=== PATIENT | female | born 1980 | race Caucasian/White ===

== ENCOUNTER 2022-04-09 17:10 | Inpatient (IN) | payer OTHER, SELFPAY ==
[2022-04-09 17:13] VITALS: BP 149/105; PULSE 118; RESP 22; TEMP 36.7; O2SAT 97; BMI 50.1
--- NOTE | 2022-04-09 17:20 | ED.PSYCH ---
HPI - Psych General Chief Complaint: Psychiatric Symptoms Stated Complaint: Wrist lac Time Seen by Provider: 04/09/22 17:18 Source: patient Mode of arrival: ambulatory Limitations: no limitations History of Present Illness HPI Narrative: 41-year-old female history of bipolar disorder presents to the emergency department with suicidal ideation with plan and depression. Patient tells me that she is suicidal with plan to cut her wrist in bleed. Today she presented with self-inflicted lacerations to bilateral wrists/forearms. She tells me that she has been feeling depressed lately over the past week or so, worsening she tells me she is under lot of stress, she tells me COVID, her child, increased how stressors, she tells me she has seen a lot of family members and she has been very stressed. She denies homicidal ideation. She tells me last night she is having visual and auditory hallucinations, she tells me she was seen hearing goes to. She tells me this is the 1st time this has ever happened to her. MD complaint: suicidal ideation and feels depressed Onset (ago): week(s) (1) Duration: constant History of same: No Relieving factors: none Exacerbating factors: none Associated psychiatric symptoms: none Associated symptoms: denies other symptoms Treatments prior to arrival: none If self harm: admits thoughts of self harm and has plan Related Data Home Medications Medication Instructions Recorded Confirmed No Known Home Meds 04/09/22 04/09/22 Allergies Allergy/AdvReac Type Severity Reaction Status Date / Time No Known Allergies Allergy Verified 04/09/22 17:14 Review of Systems Review of Systems: Constitutional : No Weight loss, No Fever, No Chills, No Fatigue, No Malaise ENT/Mouth : No sore throat, No Rhinorrhea Eyes: No Eye Pain, No Swelling, No Redness Cardiovascular : No Chest Pain, No SOB, No Dyspnea on Exertion, No Orthopnea, No Edema, No Palpitations Respiratory : No Cough, No Sputum, No Wheezing Gastrointestinal : No Nausea, No Vomiting, No Diarrhea, No Constipation, No abdominal Pain, No Hematochezia, No Melena Genitourinary : No Dysuria, No Urinary Frequency, No Hematuria, Musculoskeletal : No joint pain, No Myalgias, No Joint Swelling Skin : No Skin Lesions, No rash Neuro : No Weakness, No Numbness, No Dizziness, No Headache Psych : No Anxiety/Panic, No Depression All other systems reviewed and are negative Yes all other systems are reviewed and are negative [facility] Past Medical History Attestation statement: The following information was validated with the patient. Source: old records reviewed and nursing notes reviewed Social History Social History Advance Directives: No Advance Directives Information Provided: No Physical Exam Vital Signs: Vital Signs: Last Vital Signs Temp 97.7 F 04/09/22 19:54 Pulse 87 04/09/22 19:54 Resp 16 04/09/22 19:54 BP 126/62 04/09/22 19:54 Pulse Ox 95 04/09/22 19:54 BMI result Body Mass Index 50.1 Patient is noted to be slightly hypertensive, tachycardic likely secondary to anxiety. Appearance: Alert.? Oriented X3.? No acute distress.? Head: Normocephalic, atraumatic, no step-offs or deformities Eyes: Pupils equal, round and reactive to light.? ENT: Pharynx normal.? Neck: Normal inspection.? Neck supple.? CVS: Normal heart rate and rhythm.? Pulses normal.? Respiratory: No respiratory distress.? Breath sounds normal.? Abdomen: Soft and nontender.? Skin: Skin warm and dry.? Normal skin color.? Normal skin turgor.? + self-inflicted wounds to bilateral forearm/wrist worse on the left Extremities: No lower extremity edema.? No calf ttp. 5/5 strength to bilateral upper and lower extremities Neuro: Oriented X 3.? No motor deficit.? No sensory deficit. CN 2-12 intact Course Reevaluation(s) Reevaluation #1: CBC appears to be within normal limits. Chemistry with no acute electrolyte abnormalities requiring intervention. Urine clean. Toxicology negative. Ethanol 226. COVID negative. Patient's laceration was successfully sutured using 3, 5-0 sutures to the left forearm. Steri-Strips were also used. Patient tolerated procedure well no complications. At this time patient will be placed in physician observation to allow more time to be evaluated by the behavioral health team. At time observation was started patient common cooperative no acute distress. Time: 19:49 MDM - Psych MDM Narrative Medical decision making narrative: [id number] 41-year-old female presents with bilateral self-inflicted wounds to her wrists, suicidal ideation and depression worsening over the past few days. Physical examination significant for self-inflicted wounds bilaterally, the left wrist will require sutures for repair. Regular rate and rhythm. Lungs clear. Abdomen soft nontender nondistended. Neuro nonfocal. Plan at this time medical clearance. Medical Records Attestation: I reviewed the patient's medical records. Lab Data Attestation: I reviewed the patient's lab results. Result diagrams: 04/09/22 18:05 04/09/22 18:05 Labs: Lab Results 04/09/22 04/09/22 04/09/22 Range/Units 17:32 17:56 17:56 WBC (4.8-10.8) X10*3/uL RBC (4.20-5.50) X10*6/uL Hgb (12.0-16.0) g/dl Hct (37.0-47.0) % MCV (80.0-98.0) fL MCH (27.0-33.0) pg MCHC (31.0-35.0) g/dl RDW (11.0-16.0) % Plt Count (160-400) X10*3/uL MPV (9.4-12.3) fL Immature Gran % (Auto) (0.0-0.4) % Neut % (Auto) (45-73) % Lymph % (Auto) (20-40) % [place] % (Auto) (2-11) % Eos % (Auto) (0-4) % Baso % (Auto) (0-2) % Lymph # (Auto) (1.2-4.9) X10*3/uL [place] # (Auto) (0.1-1.2) X10*3/uL Eos # (Auto) (0.0-0.4) X10*3/uL Baso # (Auto) (0.0-0.2) X10*3/uL Abs Immat Gran (auto) (0.00-0.03) X10*3/uL Absolute Neuts (auto) (2.0-8.3) x10*3/uL Absolute Nucleated RBC (0.0-0.012) X10*3/uL Nucleated RBC % (auto) (0.0-0.2) /100WBC Sodium (135-145) mmol/L Potassium (3.3-5.1) mmol/L Chloride (96-108) mmol/L Carbon Dioxide (22-29) mmol/L Anion Gap (12-20) BUN (9-16) mg/dL Creatinine (0.5-1.4) mg/dL Estim Creat Clear Calc Estimated GFR Random Glucose (60-115) mg/dL Calcium (8.4-10.2) mg/dL Magnesium (1.6-2.6) mg/dL Total Bilirubin (0.0-1.0) mg/dL AST (5-31) U/L ALT (0-31) U/L Alkaline Phosphatase (39-117) U/L Total Protein (6.5-8.0) g/dL Albumin (3.5-5.0) g/dL Urine Color STRAW Urine Appearance CLEAR Urine pH 6.0 (5.0-8.0) Ur Specific [place] <= 1.005 (1.005-1.025) Urine Protein NEG (NEG-TRACE) MG/DL Urine Glucose (UA) NEG (NEG) MG/DL Urine Ketones NEG (NEG) MG/DL Urine Blood TRACE (NEG) Urine Nitrite NEG (NEG) Ur Leukocyte Esterase NEG (NEG) Urine RBC 0 (0) /HPF Urine WBC 0 (0-4) /HPF Ur Squamous Epith Cells TRACE /LPF Urine Bacteria NONE /LPF Urine Opiates Screen Not Detected (Not Detect) Urine Fentanyl Screen Not Detected (Not Detect) Ur Barbiturates Screen Not Detected (Not Detect) Ur Phencyclidine Scrn Not Detected (Not Detect) Ur Amphetamines Screen Not Detected (Not Detect) U Benzodiazepines Scrn Not Detected (Not Detect) Urine Cocaine Screen Not Detected (Not Detect) U Marijuana (THC) Screen Not Detected (Not Detect) Ethyl Alcohol mg/dL COVID-19 (DORIE) Negative (Negative) COVID-19 Clin Com See Note 04/09/22 04/09/22 04/09/22 Range/Units 18:05 18:05 18:05 WBC 8.3 (4.8-10.8) X10*3/uL RBC 4.59 (4.20-5.50) X10*6/uL Hgb 14.6 (12.0-16.0) g/dl Hct 43.8 (37.0-47.0) % MCV 95.4 (80.0-98.0) fL MCH 31.8 (27.0-33.0) pg MCHC 33.3 (31.0-35.0) g/dl RDW 13.1 (11.0-16.0) % Plt Count 394 (160-400) X10*3/uL MPV 9.1 L (9.4-12.3) fL Immature Gran % (Auto) 0.2 (0.0-0.4) % Neut % (Auto) 66.4 (45-73) % Lymph % (Auto) 25.9 (20-40) % [place] % (Auto) 4.8 (2-11) % Eos % (Auto) 2.2 (0-4) % Baso % (Auto) 0.5 (0-2) % Lymph # (Auto) 2.2 (1.2-4.9) X10*3/uL [place] # (Auto) 0.4 (0.1-1.2) X10*3/uL Eos # (Auto) 0.2 (0.0-0.4) X10*3/uL Baso # (Auto) 0.0 (0.0-0.2) X10*3/uL Abs Immat Gran (auto) 0.02 (0.00-0.03) X10*3/uL Absolute Neuts (auto) 5.5 (2.0-8.3) x10*3/uL Absolute Nucleated RBC 0.000 (0.0-0.012) X10*3/uL Nucleated RBC % (auto) 0.0 (0.0-0.2) /100WBC Sodium 139 (135-145) mmol/L Potassium 4.4 (3.3-5.1) mmol/L Chloride 109 H (96-108) mmol/L Carbon Dioxide 19 L (22-29) mmol/L Anion Gap 15 (12-20) BUN 8 L (9-16) mg/dL Creatinine 0.83 (0.5-1.4) mg/dL Estim Creat Clear Calc 132.4 Estimated GFR > 60 Random Glucose 98 (60-115) mg/dL Calcium 9.4 (8.4-10.2) mg/dL Magnesium 2.1 (1.6-2.6) mg/dL Total Bilirubin 0.4 (0.0-1.0) mg/dL AST 34 H (5-31) U/L ALT 25 (0-31) U/L Alkaline Phosphatase 69 (39-117) U/L Total Protein 7.9 (6.5-8.0) g/dL Albumin 4.3 (3.5-5.0) g/dL Urine Color Urine Appearance Urine pH (5.0-8.0) Ur Specific [place] (1.005-1.025) Urine Protein (NEG-TRACE) MG/DL Urine Glucose (UA) (NEG) MG/DL Urine Ketones (NEG) MG/DL Urine Blood (NEG) Urine Nitrite (NEG) Ur Leukocyte Esterase (NEG) Urine RBC (0) /HPF Urine WBC (0-4) /HPF Ur Squamous Epith Cells /LPF Urine Bacteria /LPF Urine Opiates Screen (Not Detect) Urine Fentanyl Screen (Not Detect) Ur Barbiturates Screen (Not Detect) Ur Phencyclidine Scrn (Not Detect) Ur Amphetamines Screen (Not Detect) U Benzodiazepines Scrn (Not Detect) Urine Cocaine Screen (Not Detect) U Marijuana (THC) Screen (Not Detect) Ethyl Alcohol 226 mg/dL COVID-19 (DOREI) (Negative) COVID-19 Clin Com Procedures Laceration Laceration 1: Site: other (wrist ) Side (If applicable): left Size (cm): 4 Description: linear Depth: simple, single layer Local Anesthetic: lidocaine 1% Amount of anesthesia used (mL): 5 Pre-repair: wound explored, irrigated extensively and deep structures intact Skin layer closed with: vicryl Size (cm): 5-0 Number of sutures: 3 Critical Care Time Critical Care Time Critical Care Time: No Discharge Plan Discharge Clinical Impression: Depression, Suicidal ideation, Laceration of wrist Patient Disposition: Still a Patient Instructions: Depression (ED), Laceration (ED), Help Prevent Suicide (ED) Additional Instructions: Take your medications as prescribed. If you were prescribed antibiotics today, it is important that you take your medication to their entirety, do not skip any doses, do not finish them early. Follow-up with your primary care provider this week. Return to the emergency department with new or worsening symptoms. Such as fevers, chills, chest pain, shortness of breath, nausea, vomiting, dizziness, headache, vision changes, lethargy In case of emergency call 911 Return in 7-10 days for suture removal. Prescriptions: No Action No Known Home Meds 0RF
[2022-04-09] MEDS: Lidocaine HCl 2 % MPF 5 ML VIAL SUBCUT (17:29)
[2022-04-09] MEDS: Diphth,Pertus(ACell),Tet Adult 0.5 ML SYRINGE IM (17:33)
--- NOTE | 2022-04-09 17:35 | PC.NURSE ---
PROVIDER AT BEDSIDE TENDING TO LAC ON LEFT WRIST.
[2022-04-09 17:53] LABS: COVID-19 Test Negative (Negative); IDNOW Serial# 16C4AD1C
[2022-04-09 18:06] LABS: Appearance Urine CLEAR; Color Urine STRAW; Glucose Urine UA NEG (NEG); Leukocyte Esterase Urine NEG (NEG); Nitrite Urine NEG (NEG); Specific Gravity - Urine <= 1.005 (1.005-1.025); UACC Culture Trigger NO; Urine Blood TRACE (NEG); Urine Ketones NEG (NEG); Urine Protein NEG (NEG-TRACE)
[2022-04-09 18:10] LABS: MANUAL DIFF FLAG NO
[2022-04-09 18:15] LABS: RBC Urine 0 /HPF (0); Squamous Epithelial Cell Urine TRACE /LPF; WBC Urine 0 /HPF (0-4)
[2022-04-09 18:21] LABS: Amphetamine Screen Urine Not Detected (Not Detect); Barbiturates, Urine Not Detected (Not Detect); Benzodiazepines Screen Urine Not Detected (Not Detect); Cannabinoid Screen Urine Not Detected (Not Detect); Cocaine Screen Urine Not Detected (Not Detect); Fentanyl, urine Not Detected (Not Detect); Opiate Screen Urine Not Detected (Not Detect); Phencyclidine Screen Urine Not Detected (Not Detect)
[2022-04-09 18:23] LABS: Ethanol 226 mg/dL
[2022-04-09 18:24] LABS: Basophils Percent Auto 0.5 % (0-2); Eosinophils Absolute Auto 0.2 X10*3/uL (0.0-0.4); Eosinophils Percent Auto 2.2 % (0-4); Hematocrit 43.8 % (37.0-47.0); Hemoglobin 14.6 g/dl (12.0-16.0); Imm Gran Abs Auto 0.02 X10*3/uL (0.00-0.03); Imm Gran Pct Auto 0.2 % (0.0-0.4); Lymphocytes Absolute Auto 2.2 X10*3/uL (1.2-4.9); Lymphocytes Percent Auto 25.9 % (20-40); Mean Corpuscular HGB Conc 33.3 g/dl (31.0-35.0); Mean Corpuscular Hemoglobin 31.8 pg (27.0-33.0); Mean Corpuscular Volume 95.4 fL (80.0-98.0); Mean Platelet Volume 9.1 fL (9.4-12.3); Monocytes Absolute Auto 0.4 X10*3/uL (0.1-1.2); Monocytes Percent Auto 4.8 % (2-11); Neutrophils Absolute Auto 5.5 x10*3/uL (2.0-8.3); Neutrophils Percent Auto 66.4 % (45-73); Platelet Count 394 X10*3/uL (160-400); Red Blood Count 4.59 X10*6/uL (4.20-5.50); Red Cell Distribution Width 13.1 % (11.0-16.0); White Blood Count 8.3 X10*3/uL (4.8-10.8)
[2022-04-09 18:26] LABS: Alanine Aminotransferase 25 U/L (0-31); Albumin Level 4.3 g/dL (3.5-5.0); Alkaline Phosphatase 69 U/L (39-117); Anion Gap 15 (12-20); Aspartate Amino Transferase 34 U/L (5-31); Bilirubin Total 0.4 mg/dL (0.0-1.0); Blood Urea Nitrogen 8 mg/dL (9-16); Calcium 9.4 mg/dL (8.4-10.2); Carbon Dioxide 19 mmol/L (22-29); Chloride 109 mmol/L (96-108); Creatinine Clr Calc Pharmacy 132.4; Estimated Glomerular Filt Rate > 60; Glucose Random 98 mg/dL (60-115); Magnesium 2.1 mg/dL (1.6-2.6); Potassium 4.4 mmol/L (3.3-5.1); Sodium 139 mmol/L (135-145); Total Protein 7.9 g/dL (6.5-8.0)
[2022-04-09 19:54] VITALS: BP 126/62; PULSE 87; RESP 16; TEMP 36.5; O2SAT 95
[2022-04-09] MEDS: LORazepam 1 MG TABLET 2 MG PO (23:31)
[2022-04-09] MEDS: Ondansetron ODT 4 MG TAB.RAPDIS TRANSLINGU (23:46)
[2022-04-10 00:14] VITALS: BP 143/86; PULSE 100; RESP 16; TEMP 36.4; O2SAT 94
--- NOTE | 2022-04-10 01:28 | PC.NURSE ---
@2327 CIWA score was 10, administered Ativan 2 mg po, patient reported + effect, currently in bed resting, awaiting BHN assessment, will continue monitor
[2022-04-10] MEDS: LORazepam 1 MG TABLET 2 MG PO ×3 (04:49→21:15)
--- NOTE | 2022-04-10 06:54 | PC.NURSE ---
Ativan 2 mg PO administered at 0449, currently resting, no distress reported, VSS, will continue to monitor
--- NOTE | 2022-04-10 07:22 | PC.NURSE ---
patient appears to remain asleep[ at present respirations are even and unlabored patient appears in no distress
[2022-04-10 09:12] LABS: UPreg QC Valid YES; Urine Pregnancy NEGATIVE (NEGATIVE)
[2022-04-10 20:54] VITALS: RESP 20
[2022-04-10 21:22] VITALS: BP 127/86; PULSE 90; RESP 20; TEMP 36.1; O2SAT 95
[2022-04-11 02:42] VITALS: BP 102/58; PULSE 68; RESP 17; TEMP 36.8; O2SAT 98
[2022-04-11] MEDS: LORazepam 1 MG TABLET 2 MG PO ×3 (04:27→21:39)
[2022-04-11 04:29] VITALS: BP 110/72; PULSE 86; RESP 16; O2SAT 96
--- NOTE | 2022-04-11 06:37 | PC.NURSE ---
Patient overall slept well, no distress observed/reported, reported Headache at 0420, VSS, Ativan 2 mg PO administered anxiety, disposition per [facility] is section 12 inpatient bed search, behavior appropriate and non concerning, currently not on any scheduled meds, VSS, will continue to monitor.
--- NOTE | 2022-04-11 07:14 | PC.NURSE ---
patient appears to remain asleep at present respirations are even and unlabored patient appears in no distress
[2022-04-11 19:44] VITALS: BP 131/84; PULSE 94; RESP 20; TEMP 36.2; O2SAT 95
--- NOTE | 2022-04-12 06:22 | PC.NURSE ---
Patient slept through the night, no distress observed/reported, positive effect from Ativan 2 mg PO administered at 2139, asymptomatic of withdrawal at this time, showered, mood and behavior pleasant, disposition per [facility] is section 12 inpatient bed search, patient currently not on any scheduled medication, contracted for the safety, VSS, will continue to monitor
--- NOTE | 2022-04-12 07:50 | PC.NURSE ---
patient appears to remain at rest at present requested coloring pencils and pages respirations even and unlabored patient appears in no distress
[2022-04-12 10:12] VITALS: BP 156/78; PULSE 83; RESP 14; TEMP 36.3; O2SAT 95
[2022-04-12 14:36] LABS: COVID-19 Test Negative (Negative); IDNOW Serial# 55D5AD1C
[2022-04-12] MEDS: LORazepam 1 MG TABLET 2 MG PO (15:11)
[2022-04-12 19:45] VITALS: BP 137/92; PULSE 98; RESP 16; TEMP 36.3; O2SAT 95
[2022-04-12] MEDS: Famotidine 20 MG TABLET PO (22:06)
[2022-04-12] MEDS: hydrOXYzine HCL 25 MG TABLET PO (22:06)
[2022-04-12] MEDS: LORazepam 1 MG TABLET PO (22:06)
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
[2022-04-13 08:00] VITALS: BP 136/88; PULSE 84; RESP 18; TEMP 36.2; O2SAT 99
[2022-04-13] MEDS: Folic Acid 1 MG TABLET PO (08:59)
[2022-04-13] MEDS: Multivitamin TABLET 1 TAB PO (08:59)
[2022-04-13] MEDS: LORazepam 1 MG TABLET PO (08:59)
[2022-04-13] MEDS: Thiamine HCL 100 MG TABLET PO (08:59)
[2022-04-13] MEDS: Famotidine 20 MG TABLET PO ×2 (08:59→20:25)
[2022-04-13 12:30] VITALS: BP 128/88; PULSE 101; RESP 20; TEMP 36.7; O2SAT 98
[2022-04-13 14:40] VITALS: BP 139/85; PULSE 87; RESP 18; O2SAT 99
[2022-04-13] MEDS: buPROPion HCl XL 150 MG TAB.ER.24H PO (14:48)
[2022-04-13] MEDS: cloNIDine HCL 0.1 MG TABLET PO ×2 (14:48→20:25)
[2022-04-13] MEDS: LORazepam 0.5 MG TABLET PO ×2 (14:48→20:25)
[2022-04-13 20:10] VITALS: BP 127/74; PULSE 83; RESP 18; TEMP 36.4; O2SAT 96
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
--- NOTE | 2022-04-14 00:10 | PC.NURSE ---
Patient requested not to be awoken for CIWA assessment. Patient does not appear in distress. Breathing is free and easy. No signs of sweating.
--- NOTE | 2022-04-14 02:46 | PC.NURSE ---
Patient awake at 0220 stated that she was tossing and turning and requested the time, patient thought it was 0500. Offered prn medications but patient declined.
--- NOTE | 2022-04-14 03:53 | PC.NURSE ---
Patient resting at this time. No signs of distress noted. RR-16, Patient requested not to be awoken for CIWA assessment if she was sleeping. Nurse will continue to monitor.
[2022-04-14] MEDS: LORazepam 0.5 MG TABLET PO ×2 (08:14→21:13)
[2022-04-14] MEDS: Thiamine HCL 100 MG TABLET PO (08:14)
[2022-04-14] MEDS: cloNIDine HCL 0.1 MG TABLET PO ×2 (08:14→16:38)
[2022-04-14] MEDS: buPROPion HCl XL 150 MG TAB.ER.24H PO (08:14)
[2022-04-14] MEDS: Multivitamin TABLET 1 TAB PO (08:14)
[2022-04-14] MEDS: Famotidine 20 MG TABLET PO ×2 (08:14→21:13)
[2022-04-14] MEDS: Folic Acid 1 MG TABLET PO (08:15)
[2022-04-14 08:30] VITALS: BP 134/83; PULSE 67; RESP 16; TEMP 36.6; O2SAT 96
--- NOTE | 2022-04-14 15:15 | P.PNPSI_ITS ---
Subjective Subjective Date of Service: 04/14/22 Reason For Visit: depression/ SI Interim History: anxiety lower amplitude today, minimal SI. feeling better than yesterday and recent days in general. would like to keep daytime clonidine as it is and increase HS clonidine for sleep and nightmares. did not sleep very well last night. denies s/e from medications otherwise. planning to increase wellbutrin in 2 days. informed ativan taper will be continued. per staff, CIWAs 7, 4, 3, 1 yesterday. CIWA 0 this morning. disrupted sleep last night. sutures look CDI. visited yesterday. reported CAH to harm self to staff yesterday. Mental Status Exam Mental Status Exam Narrative: obese, adequately dressed and groomed, cooperative, no PMA/PMR. speech nml in rate, amount, loudness, tone, latency. thoughts linear and logical. affect full range, normo-intense, non-labile. mood improved. minimal SI, no HI/AVH expressed. Diagnostics Vital Signs (24Hr): Vital Signs - 24 hr 04/13/22 20:10 04/14/22 08:30 Temperature 97.6 F 97.8 F Pulse Rate 83 67 Respiratory Rate 18 16 Blood Pressure 127/74 134/83 Pulse Oximetry 96 96 Oxygen Delivery Method Room Air Room Air BMI result Body Mass Index 50.1 Labs Results: 04/09/22 18:05 04/09/22 18:05 Medications Medications Current Medications Acetaminophen (Acetaminophen 325 Mg Tablet) 650 mg PO Q6H PRN PRN Reason: Headache/Pain Mild Scale (1-3) Al Hydroxide/Mg Hydroxide (Magnesium Hydrox/Alum Hydrox 30 Ml Oral.Susp) 30 ml PO Q6H PRN PRN Reason: Heartburn/Nausea Bupropion HCl (Bupropion Hcl Xl 150 Mg Tab.Er.24h) 150 mg PO DAILY [facility] Last Admin: 04/14/22 08:14 Dose: 150 mg Clonidine HCl (Clonidine Hcl 0.1 Mg Tablet) 0.1 mg PO TID [facility]; Protocol Last Admin: 04/14/22 08:14 Dose: 0.1 mg Famotidine (Famotidine 20 Mg Tablet) 20 mg PO BID [facility] Last Admin: 04/14/22 08:14 Dose: 20 mg Folic Acid (Folic Acid 1 Mg Tablet) 1 mg PO DAILY [facility] Stop: 04/16/22 08:59 Last Admin: 04/14/22 08:15 Dose: 1 mg Hydroxyzine HCl (Hydroxyzine Hcl 25 Mg Tablet) 25 mg PO Q6H PRN PRN Reason: Anxiety Last Admin: 04/12/22 22:06 Dose: 25 mg Lorazepam (Lorazepam 1 Mg Tablet) 1 mg PO Q2H PRN PRN Reason: CIWA for 6-11 Lorazepam (Lorazepam 1 Mg Tablet) 2 mg PO Q2H PRN PRN Reason: CIWA 12 or greater Lorazepam (Lorazepam 0.5 Mg Tablet) 0.5 mg PO TID [facility] Last Admin: 04/14/22 08:14 Dose: 0.5 mg Magnesium Hydroxide (Milk Of Magnesia 30 Ml Oral.Susp) 30 ml PO DAILY PRN PRN Reason: Constipation Multivitamins/Vitamin C (Multivitamin Tablet) 1 tab PO DAILY [facility] Stop: 04/16/22 08:59 Last Admin: 04/14/22 08:14 Dose: 1 tab Nicotine Polacrilex (Nicotine Polacrilex 2 Mg Gum) 4 mg BUCCAL Q2H PRN PRN Reason: Nicotine Cravings Thiamine HCl (Thiamine Hcl 100 Mg Tablet) 100 mg PO DAILY [facility] Stop: 04/15/22 19:52 Last Admin: 04/14/22 08:14 Dose: 100 mg Trazodone HCl (Trazodone Hcl 50 Mg Tablet) 50 mg PO BEDTIME PRN PRN Reason: Insomnia Allergies Allergies Allergy/AdvReac Type Severity Reaction Status Date / Time No Known Allergies Allergy Verified 04/09/22 17:14 Assessment & Plan Assessment & Plan (1) Depression: Status: Acute Code(s): F32.A - Depression, unspecified (2) Suicidal ideation: Status: Acute Code(s): R45.851 - Suicidal ideations (3) Laceration of wrist: Status: Acute Code(s): S61.519A - Laceration without foreign body of unspecified wrist, initial encounter (4) Alcohol use disorder, moderate, dependence: Status: Acute Code(s): F10.20 - Alcohol dependence, uncomplicated Plan decreased scheduled ativan from 1 mg TID to 0.5 mg TID, as pt c/o sedation, on 04/14. ativan per [facility] protocol DCed 04/14, scheduled ativan decreased to 0.5 BID. started clonidine 0.1 TID for anxiety on 04/13. increased to 0.1/0.1/0.2 on 04/14. started wellbutrin XL 150 mg daily for depression on 04/13. incr to 300 mg daily on 04/16. T/C neuroleptic at low dose of AH persist. I spent __25____ minutes with the patient and/or on the patient floor today, greater than?50% of which was spent counseling/coordinating care. Reason for contiued inpatient stay Substantial Risk for: harm to self
[2022-04-14 21:10] VITALS: BP 115/68; PULSE 75; RESP 16; TEMP 36.6; O2SAT 97
[2022-04-14] MEDS: cloNIDine HCL 0.2 MG TABLET PO (21:13)
[2022-04-15 07:00] VITALS: BMI 50.1
[2022-04-15] MEDS: Thiamine HCL 100 MG TABLET PO (08:46)
[2022-04-15] MEDS: LORazepam 0.5 MG TABLET PO ×2 (08:46→20:11)
[2022-04-15] MEDS: Multivitamin TABLET 1 TAB PO (08:46)
[2022-04-15] MEDS: Famotidine 20 MG TABLET PO ×2 (08:46→20:11)
[2022-04-15] MEDS: buPROPion HCl XL 150 MG TAB.ER.24H PO (08:46)
[2022-04-15] MEDS: Folic Acid 1 MG TABLET PO (08:46)
[2022-04-15] MEDS: cloNIDine HCL 0.1 MG TABLET PO ×2 (08:46→15:42)
[2022-04-15 09:18] VITALS: BP 114/66; PULSE 72; RESP 18; TEMP 36.3; O2SAT 98
--- NOTE | 2022-04-15 14:40 | P.PNPSI_ITS ---
Subjective Subjective Date of Service: 04/15/22 Reason For Visit: depression/ SI Interim History: pt calm and cooeprative, bright and cheery. she states she is feeling better today, with a real smile, not a fake smile. she does c/o some sleep paralysis-like experience last night which scared her. MD encourages patient and normalizes experience. denies STAHL, sweats, tremors, n/v/d, panic/severe anxiety. denies SI/SIBI. feeling a lot of guilt and remorse, however. feeling the time here has been helpful thus far. agreeable to increase wellbutrin to 300 mg daily as of tomorrow morning. per staff, dep 7, anx 2-9. c/o AH. attending some groups. journaling. slept OK. anxious overnight. Mental Status Exam Mental Status Exam Narrative: obese, adequately dressed and groomed, cooperative, no PMA/PMR. speech nml in rate, amount, loudness, tone, latency. thoughts linear and logical. affect full range, normo-intense, non-labile. mood improved. denies SI/SIBI, no HI/AVH expressed. Diagnostics Vital Signs (24Hr): Vital Signs - 24 hr 04/14/22 21:10 04/15/22 09:18 Temperature 97.8 F 97.3 F Pulse Rate 75 72 Respiratory Rate 16 18 Blood Pressure 115/68 114/66 Pulse Oximetry 97 98 Oxygen Delivery Method Room Air Room Air BMI result Body Mass Index 50.1 Labs Results: 04/09/22 18:05 04/09/22 18:05 Medications Medications Current Medications Acetaminophen (Acetaminophen 325 Mg Tablet) 650 mg PO Q6H PRN PRN Reason: Headache/Pain Mild Scale (1-3) Al Hydroxide/Mg Hydroxide (Magnesium Hydrox/Alum Hydrox 30 Ml Oral.Susp) 30 ml PO Q6H PRN PRN Reason: Heartburn/Nausea Bupropion HCl (Bupropion Hcl Xl 300 Mg Tab.Er.24h) 300 mg PO DAILY [facility] Clonidine HCl (Clonidine Hcl 0.1 Mg Tablet) 0.1 mg PO BID@0900,1500 [facility]; Protocol Last Admin: 04/15/22 08:46 Dose: 0.1 mg Clonidine HCl (Clonidine Hcl 0.2 Mg Tablet) 0.2 mg PO BEDTIME [facility]; Protocol Last Admin: 04/14/22 21:13 Dose: 0.2 mg Famotidine (Famotidine 20 Mg Tablet) 20 mg PO BID [facility] Last Admin: 04/15/22 08:46 Dose: 20 mg Folic Acid (Folic Acid 1 Mg Tablet) 1 mg PO DAILY [facility] Stop: 04/16/22 08:59 Last Admin: 04/15/22 08:46 Dose: 1 mg Hydroxyzine HCl (Hydroxyzine Hcl 25 Mg Tablet) 25 mg PO Q6H PRN PRN Reason: Anxiety Last Admin: 04/12/22 22:06 Dose: 25 mg Lorazepam (Lorazepam 0.5 Mg Tablet) 0.5 mg PO BID [facility] Last Admin: 04/15/22 08:46 Dose: 0.5 mg Magnesium Hydroxide (Milk Of Magnesia 30 Ml Oral.Susp) 30 ml PO DAILY PRN PRN Reason: Constipation Multivitamins/Vitamin C (Multivitamin Tablet) 1 tab PO DAILY [facility] Stop: 04/16/22 08:59 Last Admin: 04/15/22 08:46 Dose: 1 tab Nicotine Polacrilex (Nicotine Polacrilex 2 Mg Gum) 4 mg BUCCAL Q2H PRN PRN Reason: Nicotine Cravings Thiamine HCl (Thiamine Hcl 100 Mg Tablet) 100 mg PO DAILY [facility] Stop: 04/15/22 19:52 Last Admin: 04/15/22 08:46 Dose: 100 mg Trazodone HCl (Trazodone Hcl 50 Mg Tablet) 50 mg PO BEDTIME PRN PRN Reason: Insomnia Allergies Allergies Allergy/AdvReac Type Severity Reaction Status Date / Time No Known Allergies Allergy Verified 04/09/22 17:14 Assessment & Plan Assessment & Plan (1) Depression: Status: Acute Code(s): F32.A - Depression, unspecified (2) Suicidal ideation: Status: Acute Code(s): R45.851 - Suicidal ideations (3) Laceration of wrist: Status: Acute Code(s): S61.519A - Laceration without foreign body of unspecified wrist, initial encounter (4) Alcohol use disorder, moderate, dependence: Status: Acute Code(s): F10.20 - Alcohol dependence, uncomplicated Plan decreased scheduled ativan from 1 mg TID to 0.5 mg TID, as pt c/o sedation, on 04/14. ativan per [facility] protocol DCed 04/14, scheduled ativan decreased to 0.5 BID. started clonidine 0.1 TID for anxiety on 04/13. increased to 0.1/0.1/0.2 on 04/14. started wellbutrin XL 150 mg daily for depression on 04/13. incr to 300 mg daily on 04/16. T/C neuroleptic at low dose of AH persist. I spent ___20___ minutes with the patient and/or on the patient floor today, greater than?50% of which was spent counseling/coordinating care. Reason for contiued inpatient stay Substantial Risk for: harm to self, inability to function and rapid decompensation
[2022-04-15 18:00] VITALS: BP 119/70; PULSE 85; RESP 14; TEMP 36.6; O2SAT 97
[2022-04-15] MEDS: cloNIDine HCL 0.2 MG TABLET PO (20:11)
[2022-04-15] MEDS: traZODone HCL 50 MG TABLET PO (20:59)
[2022-04-16] MEDS: Milk of Magnesia 30 ML ORAL.SUSP PO (03:42)
[2022-04-16 09:18] VITALS: BP 130/70; PULSE 72; RESP 18; TEMP 36.7; O2SAT 97
[2022-04-16] MEDS: buPROPion HCl XL 300 MG TAB.ER.24H PO (09:20)
[2022-04-16] MEDS: cloNIDine HCL 0.1 MG TABLET PO ×2 (09:20→14:48)
[2022-04-16] MEDS: Famotidine 20 MG TABLET PO ×2 (09:21→20:50)
[2022-04-16] MEDS: LORazepam 0.5 MG TABLET PO (09:21)
[2022-04-16 14:46] VITALS: BP 116/58; PULSE 73
--- NOTE | 2022-04-16 15:37 | P.PNPSI_ITS ---
Subjective Subjective Date of Service: 04/16/22 Reason For Visit: depression/ SI Interim History: calm, cooperative, bright. somewhat more labile today when discussing her convo with her yesterday and the topic, her children's upset about her behaviors. she was encouraged to explore with her what they have expressed concern over so she could prepare herself for the conversations with them prior to going home. informed pt ativan would be now DCed as part of taper. no complaints or requests from pt. amenable to F/U with substance abuse counselor after discharge. per staff, dep 4 anx 3. no SI/HI/AVH. brighter, + groups. good appetite, journaling. tearful at times yesterday after difficult visit with . Mental Status Exam Mental Status Exam Narrative: obese, adequately dressed and groomed, cooperative, no PMA/PMR. speech nml in rate, amount, loudness, tone, latency. thoughts linear and logical. affect full range, normo-intense, min-labile (some tearfulness over concern about how her kids see her now). feeling guilt and shame today. no SI/SIBI/HI/AVH expressed. Diagnostics Vital Signs (24Hr): Vital Signs - 24 hr 04/15/22 18:00 04/16/22 09:18 04/16/22 14:46 Temperature 97.9 F 98.0 F Pulse Rate 85 72 73 Respiratory Rate 14 18 Blood Pressure 119/70 130/70 116/58 L Pulse Oximetry 97 97 Oxygen Delivery Method Room Air Room Air BMI result Body Mass Index 50.1 Labs Results: 04/09/22 18:05 04/09/22 18:05 Medications Medications Current Medications Acetaminophen (Acetaminophen 325 Mg Tablet) 650 mg PO Q6H PRN PRN Reason: Headache/Pain Mild Scale (1-3) Al Hydroxide/Mg Hydroxide (Magnesium Hydrox/Alum Hydrox 30 Ml Oral.Susp) 30 ml PO Q6H PRN PRN Reason: Heartburn/Nausea Bupropion HCl (Bupropion Hcl Xl 300 Mg Tab.Er.24h) 300 mg PO DAILY [facility] Last Admin: 04/16/22 09:20 Dose: 300 mg Chlorpromazine HCl (Chlorpromazine Hcl 100 Mg Tablet) 100 mg PO BEDTIME PRN PRN Reason: agitation Clonidine HCl (Clonidine Hcl 0.1 Mg Tablet) 0.1 mg PO BID@0900,1500 [facility]; Protocol Last Admin: 04/16/22 14:48 Dose: 0.1 mg Clonidine HCl (Clonidine Hcl 0.2 Mg Tablet) 0.2 mg PO BEDTIME [facility]; Protocol Last Admin: 04/15/22 20:11 Dose: 0.2 mg Famotidine (Famotidine 20 Mg Tablet) 20 mg PO BID [facility] Last Admin: 04/16/22 09:21 Dose: 20 mg Hydroxyzine HCl (Hydroxyzine Hcl 25 Mg Tablet) 25 mg PO Q6H PRN PRN Reason: Anxiety Last Admin: 04/12/22 22:06 Dose: 25 mg Magnesium Hydroxide (Milk Of Magnesia 30 Ml Oral.Susp) 30 ml PO DAILY PRN PRN Reason: Constipation Last Admin: 04/16/22 03:42 Dose: 30 ml Nicotine Polacrilex (Nicotine Polacrilex 2 Mg Gum) 4 mg BUCCAL Q2H PRN PRN Reason: Nicotine Cravings Trazodone HCl (Trazodone Hcl 100 Mg Tablet) 100 mg PO BEDTIME PRN PRN Reason: Insomnia Allergies Allergies Allergy/AdvReac Type Severity Reaction Status Date / Time No Known Allergies Allergy Verified 04/09/22 17:14 Assessment & Plan Assessment & Plan (1) Depression: Status: Acute Code(s): F32.A - Depression, unspecified (2) Suicidal ideation: Status: Acute Code(s): R45.851 - Suicidal ideations (3) Laceration of wrist: Status: Acute Code(s): S61.519A - Laceration without foreign body of unspecified wrist, initial encounter (4) Alcohol use disorder, moderate, dependence: Status: Acute Code(s): F10.20 - Alcohol dependence, uncomplicated Plan decreased scheduled ativan from 1 mg TID to 0.5 mg TID, as pt c/o sedation, on 04/14. ativan per [facility] protocol DCed 04/14, scheduled ativan decreased to 0.5 BID. ativan DCed on 04/16. started clonidine 0.1 TID for anxiety on 04/13. increased to 0.1/0.1/0.2 on 04/14. started wellbutrin XL 150 mg daily for depression on 04/13. incr to 300 mg daily on 04/16. pt does not have AH, no neuroleptic needed. I spent ___25___ minutes with the patient and/or on the patient floor today, greater than?50% of which was spent counseling/coordinating care. Reason for contiued inpatient stay Substantial Risk for: harm to self, inability to function and rapid decompensation
--- NOTE | 2022-04-16 19:24 | MHC.RECOVSUP ---
Addendum entered by Salomón Rivera 04/20/22 11:12: Patient to start the [place] [facility] virtually upon discharge. Patient on naltrexone, referred patient to [employer]. Gave patient community resources, such as AAmtg's and counseling referrals. referred her to [facility] and the [facility]. Original Note: ? Reason for consult Recovery Support.. o Current location: [facility] [place][note 3] o Identified substance use concern: Alcohol - Support ? Intervention: o Community resources provided o Harm reduction discussion ? Plan: o Patient to follow up with [facility] after discharge ? Additional information: Met with Patient we talk harm reduction and recovery.. we talk about [facility] [place] & [employer].. Patient want to try both..
[2022-04-16 20:30] VITALS: BP 114/61; PULSE 68; RESP 18; TEMP 36.4; O2SAT 99
[2022-04-16] MEDS: cloNIDine HCL 0.2 MG TABLET PO (20:49)
[2022-04-16] MEDS: traZODone HCL 100 MG TABLET PO (20:50)
[2022-04-16] MEDS: hydrOXYzine HCL 25 MG TABLET PO (20:50)
[2022-04-16] MEDS: chlorproMAZINE HCl 100 MG TABLET PO (20:50)
[2022-04-17 08:30] VITALS: BP 101/65; PULSE 82; RESP 16; TEMP 36.4; O2SAT 95
[2022-04-17] MEDS: Famotidine 20 MG TABLET PO ×2 (08:56→20:59)
[2022-04-17] MEDS: cloNIDine HCL 0.1 MG TABLET PO ×2 (08:56→15:48)
[2022-04-17] MEDS: buPROPion HCl XL 300 MG TAB.ER.24H PO (08:59)
[2022-04-17] MEDS: Omeprazole 20 MG CAPSULE.DR PO (10:30)
[2022-04-17] MEDS: Thiamine HCL 100 MG TABLET PO (10:30)
[2022-04-17] MEDS: Naltrexone HCl 50 MG TABLET PO (10:30)
[2022-04-17] MEDS: Folic Acid 1 MG TABLET PO (10:30)
--- NOTE | 2022-04-17 12:23 | P.PNPSI_ITS ---
Subjective Subjective Date of Service: 04/17/22 Reason For Visit: depression/ SI Subjective Notes: Conditional Voluntary Interim History: Pt reports feeling less depressed, more hopeful. She reports less anxious mood. Increase motivation to continue alcohol use disorder treatment. She denies SI/HI. She agrees to start naltrexon for alcohol cravings. No behavioral concerns. Stitches were removed by hospitalist. Medication Compliance: Yes Side effects from medications: No Review of Systems Review of Systems Constitutional : No Weight loss, No Fever, No Chills, No Fatigue, No Malaise ENT/Mouth : No sore throat, No Rhinorrhea Eyes: No Eye Pain, No Swelling, No Redness Cardiovascular : No Chest Pain, No SOB, No Dyspnea on Exertion, No Orthopnea, No Edema, No Palpitations Respiratory : No Cough, No Sputum, No Wheezing Gastrointestinal : No Nausea, No Vomiting, No Diarrhea, No Constipation, No abdominal Pain, No Hematochezia, No Melena Genitourinary : No Dysuria, No Urinary Frequency, No Hematuria, Musculoskeletal : No joint pain, No Myalgias, No Joint Swelling Skin : No Skin Lesions, No rash Neuro : No Weakness, No Numbness, No Dizziness, No Headache Psych : No Anxiety/Panic, No Depression All other systems reviewed and are negative Yes all other systems are reviewed and are negative Mental Status Exam Mental Status Exam Narrative: obese, adequately dressed and groomed, cooperative, no PMA/PMR. speech nml in rate, amount, loudness, tone, latency. thoughts linear and logical. affect full range, normo-intense, non labile. no SI/SIBI/HI/AVH expressed. Diagnostics Vital Signs (24Hr): Vital Signs - 24 hr 04/16/22 14:46 04/16/22 20:30 Temperature 97.5 F Pulse Rate 73 68 Respiratory Rate 18 Blood Pressure 116/58 L 114/61 Pulse Oximetry 99 Oxygen Delivery Method Room Air BMI result Body Mass Index 50.1 Labs Results: 04/09/22 18:05 04/09/22 18:05 Medications Medications Current Medications Acetaminophen (Acetaminophen 325 Mg Tablet) 650 mg PO Q6H PRN PRN Reason: Headache/Pain Mild Scale (1-3) Al Hydroxide/Mg Hydroxide (Magnesium Hydrox/Alum Hydrox 30 Ml Oral.Susp) 30 ml PO Q6H PRN PRN Reason: Heartburn/Nausea Bupropion HCl (Bupropion Hcl Xl 300 Mg Tab.Er.24h) 300 mg PO DAILY [facility] Last Admin: 04/17/22 08:59 Dose: 300 mg Chlorpromazine HCl (Chlorpromazine Hcl 100 Mg Tablet) 100 mg PO BEDTIME PRN PRN Reason: agitation Last Admin: 04/16/22 20:50 Dose: 100 mg Clonidine HCl (Clonidine Hcl 0.1 Mg Tablet) 0.1 mg PO BID@0900,1500 [facility]; Protocol Last Admin: 04/17/22 08:56 Dose: 0.1 mg Clonidine HCl (Clonidine Hcl 0.2 Mg Tablet) 0.2 mg PO BEDTIME [facility]; Protocol Last Admin: 04/16/22 20:49 Dose: 0.2 mg Famotidine (Famotidine 20 Mg Tablet) 20 mg PO BID [facility] Last Admin: 04/17/22 08:56 Dose: 20 mg Hydroxyzine HCl (Hydroxyzine Hcl 25 Mg Tablet) 25 mg PO Q6H PRN PRN Reason: Anxiety Last Admin: 04/16/22 20:50 Dose: 25 mg Magnesium Hydroxide (Milk Of Magnesia 30 Ml Oral.Susp) 30 ml PO DAILY PRN PRN Reason: Constipation Last Admin: 04/16/22 03:42 Dose: 30 ml Nicotine Polacrilex (Nicotine Polacrilex 2 Mg Gum) 4 mg BUCCAL Q2H PRN PRN Reason: Nicotine Cravings Omeprazole (Omeprazole 20 Mg Capsule.Dr) 20 mg PO DAILY@0630 [facility] Trazodone HCl (Trazodone Hcl 100 Mg Tablet) 100 mg PO BEDTIME PRN PRN Reason: Insomnia Last Admin: 04/16/22 20:50 Dose: 100 mg Allergies Allergies Allergy/AdvReac Type Severity Reaction Status Date / Time No Known Allergies Allergy Verified 04/09/22 17:14 Assessment & Plan Assessment & Plan (1) Depression: Status: Acute Code(s): F32.A - Depression, unspecified (2) Suicidal ideation: Status: Acute Code(s): R45.851 - Suicidal ideations (3) Laceration of wrist: Status: Acute Code(s): S61.519A - Laceration without foreign body of unspecified wrist, initial e ncounter (4) Alcohol use disorder, moderate, dependence: Status: Acute Code(s): F10.20 - Alcohol dependence, uncomplicated Plan decreased scheduled ativan from 1 mg TID to 0.5 mg TID, as pt c/o sedation, on 04/14. ativan per [facility] protocol DCed 04/14, scheduled ativan decreased to 0.5 BID. ativan DCed on 04/16. started clonidine 0.1 TID for anxiety on 04/13. increased to 0.1/0.1/0.2 on 04/14. started wellbutrin XL 150 mg daily for depression on 04/13. incr to 300 mg daily on 04/16. pt does not have AH, no neuroleptic needed. 04/17 continue current medications, naltrexon added 50mg po daily. stitches removed by hospitalist. I spent _25 minutes with the patient and/or on the patient floor today, greater than?50% of which was spent counseling/coordinating care. Reason for contiued inpatient stay Substantial Risk for: harm to self
[2022-04-17] MEDS: cloNIDine HCL 0.2 MG TABLET PO (20:02)
[2022-04-17 20:55] VITALS: BP 104/57; PULSE 94; RESP 18; TEMP 36.4; O2SAT 97
[2022-04-17] MEDS: traZODone HCL 100 MG TABLET PO (20:59)
[2022-04-17] MEDS: hydrOXYzine HCL 25 MG TABLET PO (20:59)
[2022-04-18 06:00] VITALS: BP 100/61; PULSE 91; RESP 16; TEMP 36.4; O2SAT 93
[2022-04-18] MEDS: Milk of Magnesia 30 ML ORAL.SUSP PO (06:15)
[2022-04-18] MEDS: Omeprazole 20 MG CAPSULE.DR PO (06:15)
[2022-04-18] MEDS: Magnesium Citrate 300 ML SOLUTION PO (06:41)
[2022-04-18] MEDS: buPROPion HCl XL 300 MG TAB.ER.24H PO (09:35)
[2022-04-18] MEDS: Naltrexone HCl 50 MG TABLET PO (09:35)
[2022-04-18] MEDS: Famotidine 20 MG TABLET PO ×2 (09:35→20:51)
[2022-04-18] MEDS: Folic Acid 1 MG TABLET PO (09:35)
[2022-04-18] MEDS: cloNIDine HCL 0.1 MG TABLET PO ×2 (09:35→14:37)
[2022-04-18] MEDS: Thiamine HCL 100 MG TABLET PO (09:39)
--- NOTE | 2022-04-18 10:16 | HO.PSYCHPN ---
Subjective Subjective Date of Service: 04/18/22 Reason For Visit: depression/ SI Subjective Notes: Conditional Voluntary Interim History: Pt continues to report feeling less depressed, more hopeful. She reports less anxious mood. Increase motivation to continue alcohol use disorder treatment. She denies SI/HI. No side effects with naltrexon for alcohol cravings. No behavioral concerns. Pt visible on the unit, social with peers, attending groups. Medication Compliance: Yes Review of Systems Review of Systems Constitutional : No Weight loss, No Fever, No Chills, No Fatigue, No Malaise ENT/Mouth : No sore throat, No Rhinorrhea Eyes: No Eye Pain, No Swelling, No Redness Cardiovascular : No Chest Pain, No SOB, No Dyspnea on Exertion, No Orthopnea, No Edema, No Palpitations Respiratory : No Cough, No Sputum, No Wheezing Gastrointestinal : No Nausea, No Vomiting, No Diarrhea, No Constipation, No abdominal Pain, No Hematochezia, No Melena Genitourinary : No Dysuria, No Urinary Frequency, No Hematuria, Musculoskeletal : No joint pain, No Myalgias, No Joint Swelling Skin : No Skin Lesions, No rash Neuro : No Weakness, No Numbness, No Dizziness, No Headache Psych : No Anxiety/Panic, No Depression All other systems reviewed and are negative Yes all other systems are reviewed and are negative Mental Status Exam Mental Status Exam Narrative: obese, adequately dressed and groomed, cooperative, no PMA/PMR. speech nml in rate, amount, loudness, tone, latency. thoughts linear and logical. affect full range, normo-intense, non labile. no SI/SIBI/HI/AVH expressed. Diagnostics Vital Signs (24Hr): Vital Signs - 24 hr 04/18/22 20:00 Temperature 97.8 F Pulse Rate 80 Respiratory Rate 18 Blood Pressure 104/66 Pulse Oximetry 97 Oxygen Delivery Method Room Air BMI result Body Mass Index 50.1 Labs Results: 04/09/22 18:05 04/09/22 18:05 Medications Medications Current Medications Acetaminophen (Acetaminophen 325 Mg Tablet) 650 mg PO Q6H PRN PRN Reason: Headache/Pain Mild Scale (1-3) Last Admin: 04/18/22 19:54 Dose: 650 mg Al Hydroxide/Mg Hydroxide (Magnesium Hydrox/Alum Hydrox 30 Ml Oral.Susp) 30 ml PO Q6H PRN PRN Reason: Heartburn/Nausea Bupropion HCl (Bupropion Hcl Xl 300 Mg Tab.Er.24h) 300 mg PO DAILY [facility] Last Admin: 04/18/22 09:35 Dose: 300 mg Chlorpromazine HCl (Chlorpromazine Hcl 100 Mg Tablet) 100 mg PO BEDTIME PRN PRN Reason: agitation Last Admin: 04/16/22 20:50 Dose: 100 mg Clonidine HCl (Clonidine Hcl 0.1 Mg Tablet) 0.1 mg PO BID@0900,1500 [facility]; Protocol Last Admin: 04/18/22 14:37 Dose: 0.1 mg Clonidine HCl (Clonidine Hcl 0.2 Mg Tablet) 0.2 mg PO BEDTIME [facility]; Protocol Last Admin: 04/18/22 20:51 Dose: 0.2 mg Famotidine (Famotidine 20 Mg Tablet) 20 mg PO BID [facility] Last Admin: 04/18/22 20:51 Dose: 20 mg Folic Acid (Folic Acid 1 Mg Tablet) 1 mg PO DAILY [facility] Last Admin: 04/18/22 09:35 Dose: 1 mg Hydroxyzine HCl (Hydroxyzine Hcl 25 Mg Tablet) 25 mg PO Q6H PRN PRN Reason: Anxiety Last Admin: 04/18/22 20:03 Dose: 25 mg Magnesium Hydroxide (Milk Of Magnesia 30 Ml Oral.Susp) 30 ml PO DAILY PRN PRN Reason: Constipation Last Admin: 04/18/22 06:15 Dose: 30 ml Naltrexone HCl (Naltrexone Hcl 50 Mg Tablet) 50 mg PO DAILY [facility] Last Admin: 04/18/22 09:35 Dose: 50 mg Nicotine Polacrilex (Nicotine Polacrilex 2 Mg Gum) 4 mg BUCCAL Q2H PRN PRN Reason: Nicotine Cravings Omeprazole (Omeprazole 20 Mg Capsule.Dr) 20 mg PO DAILY@0630 [facility] Last Admin: 04/19/22 06:37 Dose: 20 mg Thiamine HCl (Thiamine Hcl 100 Mg Tablet) 100 mg PO DAILY [facility] Last Admin: 04/18/22 09:39 Dose: 100 mg Trazodone HCl (Trazodone Hcl 100 Mg Tablet) 100 mg PO BEDTIME PRN PRN Reason: Insomnia Last Admin: 04/18/22 20:03 Dose: 100 mg Allergies Allergies Allergy/AdvReac Type Severity Reaction Status Date / Time No Known Allergies Allergy Verified 04/09/22 17:14 Assessment & Plan Assessment & Plan (1) Depression: Status: Acute Code(s): F32.A - Depression, unspecified (2) Suicidal ideation: Status: Acute Code(s): R45.851 - Suicidal ideations (3) Laceration of wrist: Status: Acute Code(s): S61.519A - Laceration without foreign body of unspecified wrist, initial encounter (4) Alcohol use disorder, moderate, dependence: Status: Acute Code(s): F10.20 - Alcohol dependence, uncomplicated Plan decreased scheduled ativan from 1 mg TID to 0.5 mg TID, as pt c/o sedation, on 04/14. ativan per [facility] protocol DCed 04/14, scheduled ativan decreased to 0.5 BID. ativan DCed on 04/16. started clonidine 0.1 TID for anxiety on 04/13. increased to 0.1/0.1/0.2 on 04/14. started wellbutrin XL 150 mg daily for depression on 04/13. incr to 300 mg daily on 04/16. pt does not have AH, no neuroleptic needed. 04/17 continue current medications, naltrexon added 50mg po daily. stitches removed by hospitalist. continue current tx plan. I spent ___25___ minutes with the patient and/or on the patient floor today, greater than?50% of which was spent counseling/coordinating care. Reason for contiued inpatient stay Substantial Risk for: stable for discharge
[2022-04-18] MEDS: Acetaminophen 325 MG TABLET 650 MG PO (19:54)
[2022-04-18 20:00] VITALS: BP 104/66; PULSE 80; RESP 18; TEMP 36.6; O2SAT 97
[2022-04-18] MEDS: hydrOXYzine HCL 25 MG TABLET PO (20:03)
[2022-04-18] MEDS: traZODone HCL 100 MG TABLET PO (20:03)
[2022-04-18] MEDS: cloNIDine HCL 0.2 MG TABLET PO (20:51)
[2022-04-19] MEDS: Omeprazole 20 MG CAPSULE.DR PO (06:37)
[2022-04-19 08:00] VITALS: BP 117/65; PULSE 60; RESP 16; TEMP 36.6; O2SAT 97
[2022-04-19] MEDS: Famotidine 20 MG TABLET PO ×2 (08:42→20:56)
[2022-04-19] MEDS: Naltrexone HCl 50 MG TABLET PO (08:43)
[2022-04-19] MEDS: cloNIDine HCL 0.1 MG TABLET PO (08:43)
[2022-04-19] MEDS: Thiamine HCL 100 MG TABLET PO (08:43)
[2022-04-19] MEDS: Folic Acid 1 MG TABLET PO (08:44)
[2022-04-19] MEDS: buPROPion HCl XL 300 MG TAB.ER.24H PO (08:44)
[2022-04-19] MEDS: Trolamine Salicylate 10 % Cream 85 GM TUBE 1 APPL TOPICAL ×2 (11:15→19:58)
[2022-04-19] MEDS: cloNIDine 0.1 MG PATCH.TDWK TRANSDERMA (13:59)
--- NOTE | 2022-04-19 14:23 | P.PNPSI_ITS ---
Subjective Subjective Date of Service: 04/19/22 Reason For Visit: depression/ SI Interim History: calm, cooperative, grateful. discusses her work in groups, practicing mindfulness, improved mood, thoughts around discharge. MD proposes Wed as discharge date, pt seems ambivalent, perhaps having wanted to stay longer. agreeable to [facility] referral. clonidine PO changed to patch today, aside from HS dosing. topical added for knee pain. otherwise no complaints or requests. per staff, sutures removed. brighter yesterday. attending groups. visible, less anxious. denies SI/HI/AVH. started on naltrexone over w/e. Mental Status Exam Mental Status Exam Narrative: obese, adequately dressed and groomed, cooperative, no PMA/PMR. speech nml in rate, amount, loudness, tone, latency. thoughts linear and logical. affect full range, normo-intense, non labile. mood mentally i feel good. not perfect, but getting better every day. no SI/SIBI/HI/AVH expressed. Diagnostics Vital Signs (24Hr): Vital Signs - 24 hr 04/18/22 20:00 04/19/22 08:00 Temperature 97.8 F 97.8 F Pulse Rate 80 60 Respiratory Rate 18 16 Blood Pressure 104/66 117/65 Pulse Oximetry 97 97 Oxygen Delivery Method Room Air Room Air BMI result Body Mass Index 50.1 Labs Results: 04/09/22 18:05 04/09/22 18:05 Medications Medications Current Medications Acetaminophen (Acetaminophen 325 Mg Tablet) 650 mg PO Q6H PRN PRN Reason: Headache/Pain Mild Scale (1-3) Last Admin: 04/18/22 19:54 Dose: 650 mg Al Hydroxide/Mg Hydroxide (Magnesium Hydrox/Alum Hydrox 30 Ml Oral.Susp) 30 ml PO Q6H PRN PRN Reason: Heartburn/Nausea Bupropion HCl (Bupropion Hcl Xl 300 Mg Tab.Er.24h) 300 mg PO DAILY NIKOS Last Admin: 04/19/22 08:44 Dose: 300 mg Chlorpromazine HCl (Chlorpromazine Hcl 100 Mg Tablet) 100 mg PO BEDTIME PRN PRN Reason: agitation Last Admin: 04/16/22 20:50 Dose: 100 mg Clonidine (Clonidine 0.1 Mg Patch.Tdwk) 0.1 mg TRANSDERMA Mo@1200 NIKOS; Protocol Last Admin: 04/19/22 13:59 Dose: 0.1 mg Clonidine HCl (Clonidine Hcl 0.2 Mg Tablet) 0.2 mg PO BEDTIME [facility]; Protocol Last Admin: 04/18/22 20:51 Dose: 0.2 mg Famotidine (Famotidine 20 Mg Tablet) 20 mg PO BID [facility] Last Admin: 04/19/22 08:42 Dose: 20 mg Folic Acid (Folic Acid 1 Mg Tablet) 1 mg PO DAILY [facility] Last Admin: 04/19/22 08:44 Dose: 1 mg Hydroxyzine HCl (Hydroxyzine Hcl 25 Mg Tablet) 25 mg PO Q6H PRN PRN Reason: Anxiety Last Admin: 04/18/22 20:03 Dose: 25 mg Lidocaine HCl (Lidocaine 4 % Cream Kit) 1 appl TOPICAL DAILY PRN; Protocol PRN Reason: knee pain Magnesium Hydroxide (Milk Of Magnesia 30 Ml Oral.Susp) 30 ml PO DAILY PRN PRN Reason: Constipation Last Admin: 04/18/22 06:15 Dose: 30 ml Naltrexone HCl (Naltrexone Hcl 50 Mg Tablet) 50 mg PO DAILY [facility] Last Admin: 04/19/22 08:43 Dose: 50 mg Nicotine Polacrilex (Nicotine Polacrilex 2 Mg Gum) 4 mg BUCCAL Q2H PRN PRN Reason: Nicotine Cravings Omeprazole (Omeprazole 20 Mg Capsule.Dr) 20 mg PO DAILY@0630 [facility] Last Admin: 04/19/22 06:37 Dose: 20 mg Thiamine HCl (Thiamine Hcl 100 Mg Tablet) 100 mg PO DAILY [facility] Last Admin: 04/19/22 08:43 Dose: 100 mg Trazodone HCl (Trazodone Hcl 100 Mg Tablet) 100 mg PO BEDTIME PRN PRN Reason: Insomnia Last Admin: 04/18/22 20:03 Dose: 100 mg Trolamine Salicylate (Trolamine Salicylate 10 % Cream 85 Gm Tube) 1 appl TOPICAL QID PRN; Protocol PRN Reason: knee pain Allergies Allergies Allergy/AdvReac Type Severity Reaction Status Date / Time No Known Allergies Allergy Verified 04/09/22 17:14 Assessment & Plan Assessment & Plan (1) Depression: Status: Acute Code(s): F32.A - Depression, unspecified (2) Suicidal ideation: Status: Acute Code(s): R45.851 - Suicidal ideations (3) Laceration of wrist: Status: Acute Code(s): S61.519A - Laceration without foreign body of unspecified wrist, initial encounter (4) Alcohol use disorder, moderate, dependence: Status: Acute Code(s): F10.20 - Alcohol dependence, uncomplicated Plan decreased scheduled ativan from 1 mg TID to 0.5 mg TID, as pt c/o sedation, on 04/14. ativan per [facility] protocol DCed 04/14, scheduled ativan decreased to 0.5 BID. ativan DCed on 04/16. started clonidine 0.1 TID for anxiety on 04/13. increased to 0.1/0.1/0.2 on 04/14. started wellbutrin XL 150 mg daily for depression on 04/13. incr to 300 mg daily on 04/16. pt does not have AH, no neuroleptic needed. 04/17 continue current medications, naltrexone added 50mg po daily. stitches removed by hospitalist. continue current tx plan. 04/19: PO clonidine during the day replaced by patch. topical added for knee pain. planning for weds DC. I spent ___25___ minutes with the patient and/or on the patient floor today, greater than?50% of which was spent counseling/coordinating care. Reason for contiued inpatient stay Substantial Risk for: harm to self and rapid decompensation
[2022-04-19] MEDS: Lidocaine 4 % Cream KIT 1 APPL TOPICAL (16:38)
[2022-04-19 20:50] VITALS: BP 125/61; PULSE 83; RESP 16; TEMP 36.4; O2SAT 95
[2022-04-19] MEDS: cloNIDine HCL 0.2 MG TABLET PO (20:56)
[2022-04-19] MEDS: Capsaicin 0.025% Cream 60 GM TUBE 1 APPL TOPICAL (22:06)
[2022-04-20] MEDS: Omeprazole 20 MG CAPSULE.DR PO (06:32)
[2022-04-20 08:28] VITALS: BP 132/85; PULSE 74; RESP 16; TEMP 36.4; O2SAT 99
[2022-04-20] MEDS: Folic Acid 1 MG TABLET PO (08:30)
[2022-04-20] MEDS: Naltrexone HCl 50 MG TABLET PO (08:30)
[2022-04-20] MEDS: Thiamine HCL 100 MG TABLET PO (08:30)
[2022-04-20] MEDS: buPROPion HCl XL 300 MG TAB.ER.24H PO (08:31)
[2022-04-20] MEDS: Famotidine 20 MG TABLET PO (08:31)
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
== END 2022-04-20 12:47 | disposition home or self-care (01) | DRG 754 ==
LOC: HO.ED 21:12 → HO.PADLT16 04-12 19:08
PROVIDERS: Physician Assistant; Physician Assistant Medical; Admitting Provider Psychiatry & Neurology Psychiatry; Emergency Provider Internal Medicine; Visit Provider Psychiatry & Neurology Psychiatry
DX: F32.A Depression, unspecified (principal); R45.851 Suicidal ideations; F10.20 Alcohol dependence, uncomplicated; S61.511A Laceration without foreign body of right wrist, initial encounter; Z20.822 Contact with and (suspected) exposure to COVID-19; Z79.899 Other long term (current) drug therapy; Z87.891 Personal history of nicotine dependence; S61.512A Laceration without foreign body of left wrist, initial encounter; W26.9XXA Contact with unspecified sharp object(s), initial encounter
CPT/HCPCS: 36415; 80053; 80307; 81001; 81025; 82077; 83735; 85025; 87635; 90715; 99285

== ENCOUNTER → 2022-04-21 11:03 | Outpatient (BNVA) | payer OTHER, SELFPAY | PROVIDERS: PCP Physician Assistant; Visit Provider Internal Medicine | DX: F10.20 Alcohol dependence, uncomplicated (principal); F32.A Depression, unspecified | CPT/HCPCS: 80305; 99202 ==

== ENCOUNTER 2022-04-21 17:27 | Outpatient (REF) | payer OTHER, SELFPAY ==
[2022-04-21 18:07] LABS: Opiate Screen Urine Not Detected (Not Detect)
== END 2022-04-21 17:28 | disposition home or self-care (01) ==
LOC: HO.LNP 17:27
PROVIDERS: Visit Provider Internal Medicine
DX: F10.20 Alcohol dependence, uncomplicated (principal); F32.A Depression, unspecified; Z79.899 Other long term (current) drug therapy
CPT/HCPCS: 80307

== ENCOUNTER → 2022-04-23 10:42 | Outpatient (BNVA) | payer OTHER, SELFPAY | PROVIDERS: Visit Provider Internal Medicine | DX: Z51.81 Encounter for therapeutic drug level monitoring (principal); F10.20 Alcohol dependence, uncomplicated | CPT/HCPCS: 80305 ==

== ENCOUNTER 2022-05-11 12:15 | Outpatient (RCR) | payer OTHER, SELFPAY ==
[2022-04-26 12:08] VITALS: BMI 50.1
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
--- NOTE | 2022-04-27 08:35 | PC.NURSE ---
case opened in treatment team
--- NOTE | 2022-05-05 13:52 | P.PNPSP_ITS ---
Subjective Subjective Date of Service: 05/05/22 Reason For Visit: depression,alcohol dependency Medical Problems Affecting Mental Status: No Interim History: Describes mood as ?good ?. States some continued fluctuation with mood lability, but manageable. Continues with some anxiety. States it is much improved over past several weeks. No SI/HI, no safety concerns at this time. Remains abstinent from alcohol, denies cravings. Actively participating in 12 step groups. Would like to switch morning clonidine dose back to oral and remove weekly transdermal patch. Medication Compliance: Yes Side effects from medications: No Attending Groups: Yes Review of Systems Acute medical concerns: No Medical Review of Systems: unchanged Review of Systems Review of Systems Yes all other systems are reviewed and are negative Constitutional: Reports no additional constitutional complaints Mental Status Exam Mental Status Exam Narrative: NAD. No SI/HI. Patient Appearance: Well Grooomed and Appropriate Patient Orientation: Person, Place, Time and Situation Level of Consciousness: Appropriate Patient Behavior: Appropriate and Good Eye Contact Mood Description: Appropriate and Anxious Affect Description: Appropriate, Depressed (Appears improving) and Anxious (Appears improving) Patient Cognition Impaired: No Ability to Follow Directions: Good Speech Pattern: Clear, Appropriate and Coherent Memory Description: Intact Hallucinations: None Delusions: Not Present Thought Process: Intact Thought Content: positive for Intact Depressive Symptoms: Increased Anxiety, Feelings of Guilt and Increased Fatigue Judgement: Fair Diagnostics Vital Signs (24Hr): BMI result Body Mass Index 50.1 Assessment & Plan Assessment & Plan (1) Bipolar 2 disorder, major depressive episode: Status: Acute Code(s): F31.81 - Bipolar II disorder Assessment and Plan: Describes mood as ?good ?. States some continued fluctuation with mood lability, but manageable. Continues with some anxiety. States it is much improved over past several weeks. No SI/HI, no safety concerns at this time. Would like to switch morning clonidine dose back to oral and remove weekly transdermal patch. She states that she finds taking it orally is more helpful in managing symptoms. She accidentally took bedtime does this morning, denies any type of dizziness, low blood pressure, feeling faint. Reports that actually she feels it is helping manage her anxiety. She plans to discuss this with her outpatient provider next time she sees her, as she may wish to switch a.m. and bedtime doses. Discussion ensued, patient is agreeable to stopping patch this afternoon, and starting p.o. clonidine 0.1 mg daily Tuesday morning. Patient will continue with 0.2 mg clonidine at bedtime as currently prescribed. (2) Post-traumatic stress disorder, chronic: Status: Acute Code(s): F43.12 - Post-traumatic stress disorder, chronic (3) Alcohol use disorder, moderate, dependence: Status: Acute Code(s): F10.20 - Alcohol dependence, uncomplicated Assessment and Plan: Remains abstinent from alcohol, denies cravings. Actively participating in 12 step groups. 25 days of sobriety today. Has begun to build network in sobriety. Taking naltrexone, denies any type of cravings at this time. Plan 1. Continue with current [facility] plan of care. 2. Discontinue clonidine patch, removed today. 3. Start clonidine 0.1 mg p.o. in a.m. on 05/07/2022. 4. Continue all other medications as currently prescribed by outpatient psychiatrist. 5. Follow-up as per protocol. Patient educated on: diagnosis, medication risk/benefits, substance abuse and therapeutic strategies Informed Consent: understands Reason for contiued partial hosp. stay Substantial Risk for: harm to self, inability to function, rapid decompensation and med/psych decompensation Certification I certify that partial hospital treatment is medically necessary due to the symptoms and problems resulting from the patient's mental illness and the failure to treat the patient at the partial hospital level of care would likely result in the patient requiring inpatient psychiatric care which could not be prevented at a less intensive level of care. I spent minutes with the patient and/or on the patient floor today, greater than?50% of which was spent counseling/coordinating care. Discharge Plan Discharge Attending provider: Jimmy Tamayo Medications: New clonidine HCl 0.1 mg tablet 0.1 mg PO DAILY 30 Days Qty: 30 0RF Rx Instructions: Take transdermal clonidine patch OFF today, 05/05/22. Take clonidine 0.1mg daily in morning, starting 05/07/22. Discontinued clonidine 0.1 mg/24 hr Patch Weekly 0.1 mg transdermal Mo@1200 28 Days Qty: 4 0RF Protocol: Hold for SBP< HOLD for SBP < : 90 No Action clonidine HCl 0.2 mg Tablet 0.2 mg PO BEDTIME 30 Days Qty: 30 0RF Protocol: Hold for SBP< HOLD for SBP < : 90 bupropion HCl 300 mg Tablet Extended Release 24 Hr 300 mg PO DAILY 30 Days Qty: 30 0RF famotidine 20 mg Tablet 20 mg PO BID 30 Days Qty: 60 0RF omeprazole 20 mg Capsule,Delayed Release(Dr/Ec) 20 mg PO DAILY@0630 30 Days Qty: 30 0RF capsaicin 0.025 % Cream 1 appl topical TID PRN (Reason: knee pain) 30 Days Qty: 120 0RF folic acid 1 mg Tablet 1 mg PO DAILY 30 Days Qty: 30 0RF thiamine mononitrate (vit B1) 100 mg Tablet 100 mg PO DAILY 30 Days Qty: 30 0RF naltrexone 50 mg Tablet 50 mg PO DAILY Stand Alone Forms: Patient Portal Discharge page Telehealth Telehealth Location of provider rendering services: practice address Location of patient: address on file Patient Identification confirmed using: Name, : Yes Telehealth method: video Patient verbally consented to treatment: Yes Patient verbally consented to billing insurance company: Yes Patient informed of any privacy concerns related to visit: Yes Minutes spent on Phone/Video with Pt.: 15
--- NOTE | 2022-05-11 12:15 | PC.NURSE ---
Patient scheduled for routine discharge from [facility] today. Reports feeling, ok, good regarding discharge. Stated this is the next step and feels she has grown and learned much. Denied SI or any safety issues. Reviewed patient medications with patient. Patient reports taking medication as prescribed. Appears to know what her medications are for and when to take them. Patient completed 10 days at [facility].
--- NOTE | 2022-05-11 13:53 | P.PNPSP_ITS ---
Subjective Subjective Date of Service: 05/11/22 Reason For Visit: depression,alcohol dependency Interim History: Patient presents for last day of [facility]. Reports that she is feeling more positive and hopeful. reporting that depressive symptoms have significantly improved over the last several weeks. Doing well with recovery, continues to abstain from alcohol, feels that Naltrexone is helping with that as well as AA. Requesting modified work note as previous one had start date listed as admission date to , and she was in area of ED for several days prior. Planning to return to work in 2 weeks. Review of Systems Constitutional: Reports as per HPI and Reports no additional constitutional complaints Mental Status Exam Mental Status Exam Narrative: NAD. No SI/HI. Patient Appearance: Well Grooomed and Appropriate Patient Orientation: Person, Place, Time and Situation Level of Consciousness: Appropriate Patient Behavior: Appropriate and Good Eye Contact Mood Description: Appropriate and Anxious Affect Description: Appropriate and Anxious (Appears improving) Patient Cognition Impaired: No Ability to Follow Directions: Good Speech Pattern: Clear, Appropriate and Coherent Memory Description: Intact Hallucinations: None Delusions: Not Present Thought Process: Intact Thought Content: positive for Intact Judgement: Fair Diagnostics Vital Signs (24Hr): BMI result Body Mass Index 50.1 Assessment & Plan Assessment & Plan (1) Bipolar 2 disorder, major depressive episode: Status: Acute Code(s): F31.81 - Bipolar II disorder Assessment and Plan: * discharging today, has appts with outpatient providers in place * new work note to be provided Certification I certify that partial hospital treatment is medically necessary due to the symptoms and problems resulting from the patient's mental illness and the failure to treat the patient at the partial hospital level of care would likely result in the patient requiring inpatient psychiatric care which could not be prevented at a less intensive level of care. I spent minutes with the patient and/or on the patient floor today, greater than?50% of which was spent counseling/coordinating care. Discharge Plan Discharge Attending provider: Jimmy Tamayo Medications: New clonidine HCl 0.1 mg tablet 0.1 mg PO DAILY 30 Days Qty: 30 0RF Rx Instructions: Take transdermal clonidine patch OFF today, 05/05/22. Take clonidine 0.1mg daily in morning, starting 05/07/22. Discontinued clonidine 0.1 mg/24 hr Patch Weekly 0.1 mg transdermal Mo@1200 28 Days Qty: 4 0RF Protocol: Hold for SBP< HOLD for SBP < : 90 No Action clonidine HCl 0.2 mg Tablet 0.2 mg PO BEDTIME 30 Days Qty: 30 0RF Protocol: Hold for SBP< HOLD for SBP < : 90 bupropion HCl 300 mg Tablet Extended Release 24 Hr 300 mg PO DAILY 30 Days Qty: 30 0RF famotidine 20 mg Tablet 20 mg PO BID 30 Days Qty: 60 0RF omeprazole 20 mg Capsule,Delayed Release(Dr/Ec) 20 mg PO DAILY@0630 30 Days Qty: 30 0RF capsaicin 0.025 % Cream 1 appl topical TID PRN (Reason: knee pain) 30 Days Qty: 120 0RF folic acid 1 mg Tablet 1 mg PO DAILY 30 Days Qty: 30 0RF thiamine mononitrate (vit B1) 100 mg Tablet 100 mg PO DAILY 30 Days Qty: 30 0RF naltrexone 50 mg Tablet 50 mg PO DAILY Stand Alone Forms: Patient Portal Discharge page Telehealth Telehealth Location of provider rendering services: practice address Location of patient: address on file Patient Identification confirmed using: Name, : Yes Telehealth method: video Patient verbally consented to treatment: Yes Patient verbally consented to billing insurance company: Yes Patient informed of any privacy concerns related to visit: Yes Minutes spent on Phone/Video with Pt.: 15
--- NOTE | 2022-05-11 16:06 | PC.NURSE ---
I emailed an out of work/ return to work letter for pt from Milvia Putnam APRN.
== END 2022-05-11 23:59 | disposition home or self-care (01) ==
LOC: HO.PHPA 12:15
PROVIDERS: Visit Provider Psychiatry & Neurology Psychiatry
DX: F31.81 Bipolar II disorder (principal); F43.12 Post-traumatic stress disorder, chronic; F10.20 Alcohol dependence, uncomplicated; Z79.899 Other long term (current) drug therapy
CPT/HCPCS: 90791; 90853

== ENCOUNTER 2022-09-27 11:30 | Outpatient (RCR) | payer OTHER, SELFPAY ==
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
[2022-09-22 15:49] LABS: Amphetamine Screen Urine Not Detected (Not Detect); Barbiturates, Urine Not Detected (Not Detect); Benzodiazepines Screen Urine Not Detected (Not Detect); Cannabinoid Screen Urine Not Detected (Not Detect); Cocaine Screen Urine Not Detected (Not Detect); Fentanyl, urine Not Detected (Not Detect); Opiate Screen Urine Not Detected (Not Detect); Phencyclidine Screen Urine Not Detected (Not Detect)
--- NOTE | 2022-09-23 08:34 | HO.PHPIOP ---
I called the client this morning after she had called out. She said that she need to be home because they are having new rugs put in today and her couldn't take the day off from work. We discussed the importance of consistent attendance in the program and she states that she will be in tomorrow.
--- NOTE | 2022-09-24 07:55 | HO.PHPIOP ---
Case opened in treatment team
--- NOTE | 2022-09-27 16:43 | HO.PHPPROGNO ---
Subjective Subjective Date of Service: 09/27/22 Reason For Visit: depression Medical Problems Affecting Mental Status: No Interim History: Describes mood as ?more stable?. Some depression, reports still has difficulty getting up and motivated in the mornings. Continues with anxiety. Sleep/appetite good. Continues abstinent from alcohol. States she is ?working on sobriety ?. Taking clonidine at night, stop taking the dose during the day, as she was too tired. No active SI/HI, feels safe. Has had fleeting thoughts of passive SI at times. Medication Compliance: Yes Side effects from medications: No Attending Groups: Yes Review of Systems Acute medical concerns: No Medical Review of Systems: unchanged Review of Systems Review of Systems Yes all other systems are reviewed and are negative Constitutional: Reports no additional constitutional complaints Mental Status Exam Mental Status Exam Narrative: NAD Patient Appearance: Well Grooomed and Appropriate Patient Orientation: Person, Place, Time and Situation Level of Consciousness: Appropriate Patient Behavior: Appropriate, Cooperative and Good Eye Contact Mood Description: Depressed and Anxious Affect Description: Depressed and Anxious (Appears improving) Patient Cognition Impaired: No Ability to Follow Directions: Excellent Speech Pattern: Clear, Appropriate and Coherent Memory Description: Intact Hallucinations: None Delusions: Not Present Thought Process: Intact Thought Content: positive for Suicidal Ideation (Passive, fleeting) Depressive Symptoms: Increased Anxiety, Sleeping More Than Usual, Loss of Int. in Activity, Significant Weight Gain (Gained 80 lb over past year), Isolating-Friends/Family and Thoughts of /Suicide Judgement: Fair Assessment & Plan Assessment & Plan (1) Bipolar 2 disorder, major depressive episode: Status: Acute Code(s): F31.81 - Bipolar II disorder Assessment and Plan: Continues with some depressed mood, anxiety. Reports she feels mood is more stable. Taking all medications as prescribed. No active SI, feels safe. Still has difficulty in the morning getting up in motivated. Finding this program to be helpful, especially as it is in person rather than virtual. Feels more comfortable being in a room with other people and speaking. Continues to work on sobriety, has a tissue recovery technician, attends regular AA zoom meetings. 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 Stop taking the daytime dose of clonidine, as she felt it was making her too tired. Takes the clonidine now at night only. Satisfied with current medication regimen. (2) Alcohol use disorder, moderate, dependence: Status: Acute Code(s): F10.20 - Alcohol dependence, uncomplicated Assessment and Plan: Questions time lying recommended for naltrexone. Discussed affects, as it is helping maintain cravings at this time. Patient encouraged to remain on the medication for now, as it appears to be helping. Suggested patient could revisit this at 1 year sobriety. It was explained that it is individual, but many patients choose to stay on this for longer period of time, until they feel secure in their recovery. Plan 1. Continue with current [facility] plan of care. 2. Continue with current medications as prescribed by outpatient provider. 3. Follow-up as per protocol. Patient educated on: diagnosis, medication risk/benefits, substance abuse and therapeutic strategies Informed Consent: understands Reason for contiued partial hosp. stay Substantial Risk for: harm to self, inability to function, rapid decompensation and med/psych decompensation Certification I certify that partial hospital treatment is medically necessary due to the symptoms and problems resulting from the patient's mental illness and the failure to treat the patient at the partial hospital level of care would likely result in the patient requiring inpatient psychiatric care which could not be prevented at a less intensive level of care. I spent minutes with the patient and/or on the patient floor today, greater than?50% of which was spent counseling/coordinating care. Discharge Plan Discharge Attending provider: Jimmy Tamayo Medications: No Action clonidine HCl 0.2 mg Tablet 0.2 mg PO BEDTIME 30 Days Qty: 30 0RF Protocol: Hold for SBP< HOLD for SBP < : 90 bupropion HCl 300 mg Tablet Extended Release 24 Hr 300 mg PO DAILY 30 Days Qty: 30 0RF omeprazole 20 mg Capsule,Delayed Release(Dr/Ec) 20 mg PO DAILY@0630 30 Days Qty: 30 0RF folic acid 1 mg Tablet 1 mg PO DAILY 30 Days Qty: 30 0RF thiamine mononitrate (vit B1) 100 mg Tablet 100 mg PO DAILY 30 Days Qty: 30 0RF clonidine HCl 0.1 mg tablet 1 tab PO DAILY Label Comments: Patient stated she takes in the morning. naltrexone 50 mg tablet 1 tab PO DAILY Vraylar 1.5 mg capsule 1 cap PO DAILY
--- NOTE | 2022-09-28 08:31 | HO.PHPIOP ---
A message was left for the clients therapist re discharge from the program
--- NOTE | 2022-09-29 08:33 | HO.PHPIOP ---
The client called this morning stating that she is not returning because she feels panic when in the groups. I called her back and we discussed this. She is attending AA on line and has outpatient providers. She states that she is safe and has been sober.
== END 2022-09-27 23:59 | disposition home or self-care (01) ==
LOC: HO.PHPA 11:30
PROVIDERS: Nurse Practitioner Psychiatric/Mental Health; Visit Provider Psychiatry & Neurology Psychiatry
DX: F31.81 Bipolar II disorder (principal); F43.12 Post-traumatic stress disorder, chronic; F10.20 Alcohol dependence, uncomplicated; Z79.899 Other long term (current) drug therapy
CPT/HCPCS: 80307; 90791; 90853